=== PATIENT | female | born 1985 | race Two or more races ===

== ENCOUNTER 2020-02-25 07:36 | Emergency (ER) | payer MEDICAID | END 2020-02-25 10:34 | disposition left against medical advice (07) | LOC: ER 07:43 | DX: B34.9 Viral infection, unspecified (principal); F12.10 Cannabis abuse, uncomplicated; Z03.818 Encounter for observation for suspected exposure to other biological agents ruled out; Z90.49 Acquired absence of other specified parts of digestive tract | CPT/HCPCS: 99281 ==

== ENCOUNTER 2020-02-25 08:09 | Emergency (ER) | payer MEDICAID ==
[2020-02-25] MEDS ORDERED: IBUPROFEN 600MG TABLET PO ONE (08:30)
[2020-02-25 09:30] VITALS: BP 136/88
== END 2020-02-25 09:35 | disposition home or self-care (01) ==
LOC: ER 08:20
DX: B34.9 Viral infection, unspecified (principal); F12.10 Cannabis abuse, uncomplicated; Z90.49 Acquired absence of other specified parts of digestive tract; Z20.828 Contact with and (suspected) exposure to other viral communicable diseases
CPT/HCPCS: 99282; C9803; U0003